=== PATIENT | female | born 1975 | race Caucasian/White ===

== ENCOUNTER 2019-11-01 10:29 | Outpatient (CLI) | payer BC, SELFPAY ==
--- NOTE | ~2019-11-01 | MM_ITS ---
EXAMINATION: MM screening [facility] BI w juan manuel HISTORY: Screening mammogram TECHNIQUE: Craniocaudal and mediolateral oblique 3-D tomosynthesis images were obtained and synthetic 2-D images were generated. CAD analysis was submitted and interpreted. COMPARISON: None, baseline BREAST PARENCHYMAL COMPOSITION: The breasts are almost entirely fatty. FINDINGS: There is no evidence of suspicious mass, calcification, or architectural distortion to sugg est malignancy in either breast. IMPRESSION: 1. No mammographic evidence of malignancy. 2. Recommend routine screening mammography in one year. BI-RADS Category 1: Negative Reviewed, dictated and finalized at location A.
== END 2019-11-01 10:30 | disposition home or self-care (01) ==
LOC: ANHIMG 10:31
PROVIDERS: Visit Provider Obstetrics & Gynecology
DX: Z12.31 Encounter for screening mammogram for malignant neoplasm of breast (principal)
CPT/HCPCS: 77063; 77067

== ENCOUNTER 2021-01-21 11:55 | Outpatient (CLI) | payer BC, SELFPAY ==
--- NOTE | ~2021-01-21 | MM_ITS ---
EXAMINATION: MM screening sri BI w juan manuel HISTORY: Screening TECHNIQUE: Craniocaudal and mediolateral oblique 3-D tomosynthesis images were obtained and synthetic 2-D images were generated. CAD analysis was submitted and interpreted. COMPARISON: 11/01/2019 BREAST PARENCHYMAL COMPOSITION: There are scattered areas of fibroglandular density. FINDINGS: There is no evidence of suspicious mass, calcification, or architectural distortion to sugg est malignancy in either breast. There has been no suspicious interval change. IMPRESSION: 1. No mammographic evidence of malignancy. 2. Recommend routine screening mammography in one year. BI-RADS Category 1: Negative Reviewed, dictated and finalized at location A.
== END 2021-01-21 11:56 | disposition home or self-care (01) ==
LOC: ANHIMG 11:56
PROVIDERS: Visit Provider Obstetrics & Gynecology
DX: Z12.31 Encounter for screening mammogram for malignant neoplasm of breast (principal)
CPT/HCPCS: 77063; 77067

== ENCOUNTER 2022-03-03 14:47 | Outpatient (CLI) | payer BC, SELFPAY ==
--- NOTE | ~2022-03-03 | MM_ITS ---
EXAMINATION: MM screening sri BI w juan manuel HISTORY: Screening mammogram TECHNIQUE: Craniocaudal and mediolateral oblique 3-D tomosynthesis images were obtained and synthetic 2-D images were generated. CAD analysis was submitted and interpreted. COMPARISON: 01/21/2021, 11/01/2019 BREAST PARENCHYMAL COMPOSITION: The breasts are almost entirely fatty. FINDINGS: There is no suspicious mass, calcification, or architectural distortion to suggest malignan cy in either breast. There has been no suspicious interval change. IMPRESSION: 1. No mammographic evidence of malignancy. 2. Recommend routine screening mammography in one year. BI-RADS Category 1: Negative Reviewed, dictated and finalized at location A.
== END 2022-03-03 14:48 | disposition home or self-care (01) ==
LOC: ANHIMG 14:50
PROVIDERS: PCP Obstetrics & Gynecology; Visit Provider Obstetrics & Gynecology
DX: Z12.31 Encounter for screening mammogram for malignant neoplasm of breast (principal)
CPT/HCPCS: 77063; 77067

== ENCOUNTER 2022-06-25 01:45 | Day surgery (SDC) | payer BC, SELFPAY ==
[2022-06-17 15:57] VITALS: BMI 38.7
[2022-06-25 10:30] VITALS: BP 146/73; PULSE 100; RESP 20; TEMP 36.1; O2SAT 100; BMI 40.1
[2022-06-25] MEDS: LACTATED RINGERS 1,000 ML 150 ML IV CONT (10:38)
--- NOTE | 2022-06-25 10:53 | WPDANESEPPF ---
Anes - Initial Pre Proc Eval Procedure: Operation Date: 06/25/22 11:30 Proposed Procedures p Screening Colonoscopy - Florentin Allen MD Date/Time: 06/25/22 10:53 Surgeon: Florentin Allen MD Pre Op Diagnosis: neoplasm screening Patient Data Age: 47 Gender: F Height: 1.78 m Weight: 127 kg Last Vital Signs Temp 96.9 F L 06/25/22 10:30 Pulse 100 06/25/22 10:30 Resp 20 06/25/22 10:30 BP 146/73 H 06/25/22 10:30 Pulse Ox 100 06/25/22 10:30 O2 Del Method Room Air 06/25/22 10:30 Allergies Allergy/AdvReac Type Severity Reaction Status Date / Time No Known Allergies Allergy Unknown Verified 06/25/22 10:29 Home Medications Medication Instructions Recorded Confirmed Type clobetasol 0.05 % topical ointment 1 applic topical DAILY PRN 01/20/22 06/17/22 History PSORIASIS drospirenone (contraceptive) 4 mg 1 tablet PO DAILY #84 tabs 05/06/22 06/17/22 Rx (28) tablet (Slynd) apremilast 30 mg tablet (Otezla) 30 mg PO BID 06/17/22 06/17/22 History Patient hx anesthesia problems: none Family hx anesthesia problems: none Results Review: All pre-operative results and documents have been reviewed as part of the pre-operative evaluation. PMFSH Past Medical History Medical History Anemia Chlamydia Psoriasis Skin cancer Surgical History Surgical History Status post surgical removal of malignant neoplasm of skin [place] teeth removed Family History Family History Grandparent Hypertension Family history of malignant neoplasm of breast Other Family history of Parkinson's disease Social History Social History Smoking status: Never smoker Second hand tobacco smoke exposure: No Alcohol intake: current Substance use: never Substance use type: does not use Living arrangements: with family Spiritual care concerns: No Anes - Eval Final PreProcedure Day of Procedure 06/25/22 10:53 Patient weight: morbidly obese Heart: regular rate and rhythm Lungs: clear to auscultation Airway: Mallampati scale class II Neurological: alert and oriented Last oral intake: >/= 8 hours ASA classification: III Emergent: no Anesthetic plan: proceed Anesthesia type and monitoring: general GIVS and standard monitoring Results Review: All pre-operative results and documents have been reviewed as part of the pre-operative evaluation. Informed Consent: The patient's anesthetic plan and its attendant risks and benefits were discussed with the patient/family/POA. Questions were solicited and answers provided to the satisfaction of the patient/family/POA.
--- NOTE | 2022-06-25 10:55 | PM.HPGS ---
History of Present Illness History of Present Illness Consent: Risks, benefits, and alternatives have been discussed and questions answered. Patient agrees to proceed with procedure. Chief complaint: neoplasm screening Narrative: Sheryl Benjamin is a 47 year old female here for first screening colonoscopy Review of Systems Constitutional: Constitutional: Denies headache(s) and Denies weakness Eyes: Eyes: Denies blurry vision ENT: Reports Normal hearing present, Denies headache(s) and Denies neck pain Cardiovascular: Cardiovascular: Denies chest pain and Denies dyspnea Respiratory: Respiratory: Denies dyspnea Gastrointestinal: Gastrointestinal: Reports no additional gastrointestinal complaints Genitourinary: Genitourinary: Denies dysuria Musculoskeletal: Musculoskeletal: Denies neck pain Integumentary/Breasts: Skin/Breast: Denies dry skin Neurologic: Reports Normal hearing present, Denies headache(s) and Denies weakness Psychiatric: Psychiatric: Denies anxiety Endocrine: Endocrine: Denies change in body appearance Hematologic/Lymphatic: Hematologic/Lymphatic: Denies easy bleeding Allergic/Immunologic: Allergic/Immunologic: Denies urticaria PMFSH Past Medical History Medical History (Updated 06/25/22 @ 10:55 by Florentin Allen MD) Anemia Chlamydia Colon cancer screening Psoriasis Skin cancer Surgical History Surgical History Status post surgical removal of malignant neoplasm of skin [place] teeth removed Family History Family History Grandparent Hypertension Family history of malignant neoplasm of breast Other Family history of Parkinson's disease Social History Social History Smoking status: Never smoker Second hand tobacco smoke exposure: No Alcohol intake: current Substance use: never Substance use type: does not use Living arrangements: with family Spiritual care concerns: No Meds Home Medications and Allergies Home Medications Medication Instructions Recorded Confirmed Type clobetasol 0.05 % topical ointment 1 applic topical DAILY PRN 01/20/22 06/17/22 History PSORIASIS drospirenone (contraceptive) 4 mg 1 tablet PO DAILY #84 tabs 05/06/22 06/17/22 Rx (28) tablet (Slynd) apremilast 30 mg tablet (Otezla) 30 mg PO BID 06/17/22 06/17/22 History Allergies Allergy/AdvReac Type Severity Reaction Status Date / Time No Known Allergies Allergy Unknown Verified 06/25/22 10:29 Vital Signs Vital Signs - 24 hr 06/25/22 10:30 Temperature 96.9 F L Pulse Rate 100 Respiratory Rate 20 Blood Pressure 146/73 H Pulse Oximetry 100 Oxygen Delivery Room Air Exam Const: General: comfortable and no acute distress HENMT: Face/Nose/Sinus: Normal nares present Eyes: General: appearance normal, both eyes and all related structures Neck: Neck: no JVD Resp: Auscultation: clear to auscultation bilaterally Cardio: Rate: regular rate Rhythm: regular rhythm GI: Inspection: non-distended GI Palp: Yes Soft to palpation Skin: General skin exam: normal color Neuro: General: gait normal Speech: normal speech Extrem: General: normal to inspection Psych: Mental Status: mental status grossly normal Assessment and Plan Assessment and plan (1) Colon cancer screening: Code(s): Z12.11 - Encounter for screening for malignant neoplasm of colon Status: Acute Assessment and Plan: colonoscopy
[2022-06-25 11:24] VITALS: BP 118/82; PULSE 61; RESP 18; O2SAT 99
[2022-06-25 11:34] VITALS: BP 111/79; PULSE 78; RESP 16; O2SAT 100
[2022-06-25 11:44] VITALS: BP 134/73; PULSE 75; RESP 22; O2SAT 100
== END 2022-06-25 11:56 | disposition home or self-care (01) ==
PROVIDERS: Visit Provider Internal Medicine Gastroenterology
PROC: 0DJD8ZZ Inspection of Lower Intestinal Tract, Via Natural or Artificial Opening Endoscopic (ICD-10-PCS; CPT 45378; principal; 2022-06-25 11:30)
DX: Z12.11 Encounter for screening for malignant neoplasm of colon (principal); D12.5 Benign neoplasm of sigmoid colon; D12.3 Benign neoplasm of transverse colon; K57.30 Diverticulosis of large intestine without perforation or abscess without bleeding; K64.8 Other hemorrhoids; Z85.828 Personal history of other malignant neoplasm of skin
CPT/HCPCS: 45385; 88305; J2704; J7120

== ENCOUNTER 2023-05-18 13:56 | Outpatient (CLI) | payer BC, SELFPAY ==
--- NOTE | ~2023-05-18 | MM_ITS ---
EXAMINATION: MM screening [facility] BI w juan manuel HISTORY: Screening mammogram TECHNIQUE: Craniocaudal and mediolateral oblique 3-D tomosynthesis images were obtained and synthetic 2-D images were generated. CAD analysis was submitted and interpreted. COMPARISON: 03/03/2022, 01/21/2021, 11/01/2019 BREAST PARENCHYMAL COMPOSITION: The breasts are almost entirely fatty. FINDINGS: There is no evidence of suspicious mass, calcification, or architectural distortion to sugg est malignancy in either breast. There has been no suspicious interval change. IMPRESSION: 1. No mammographic evidence of malignancy. 2. Recommend routine screening mammography in one year. BI-RADS Category 1: Negative Reviewed, dictated and finalized at location A.
== END 2023-05-18 13:57 | disposition home or self-care (01) ==
LOC: ANHIMG 13:59
PROVIDERS: PCP Nurse Practitioner Family; Visit Provider Obstetrics & Gynecology
DX: Z12.31 Encounter for screening mammogram for malignant neoplasm of breast (principal)
CPT/HCPCS: 77063; 77067

== ENCOUNTER 2024-06-14 07:51 | Outpatient (CLI) | payer BC, SELFPAY ==
--- NOTE | ~2024-06-14 | MM_ITS ---
EXAMINATION: MM screening sri BI w juan manuel HISTORY: Screening TECHNIQUE: Craniocaudal and mediolateral oblique 3-D tomosynthesis images were obtained and synthetic 2-D images were generated. CAD analysis was submitted and interpreted. COMPARISON: Comparison to multiple prior studies sequentially, with oldest reviewed study dated 10/31. BREAST PARENCHYMAL COMPOSITION: Not Dense: The breasts are almost entirely fatty. FINDINGS: There is no evidence of suspicious mass, calcification, or architectural distortion to sugg est malignancy in either breast. There has been no suspicious interval change. IMPRESSION: 1. No mammographic evidence of malignancy. 2. Recommend routine screening mammography in one year. BI-RADS Category 1: Negative Reviewed, dictated and finalized at location B.
== END 2024-06-14 07:52 | disposition home or self-care (01) ==
LOC: ANHIMG 07:52
PROVIDERS: PCP Nurse Practitioner Family; Visit Provider Obstetrics & Gynecology
DX: Z12.31 Encounter for screening mammogram for malignant neoplasm of breast (principal)
CPT/HCPCS: 77063; 77067

== ENCOUNTER 2025-07-09 15:00 | Outpatient (CLI) | payer BC, SELFPAY ==
--- NOTE | ~2025-07-09 | MM_ITS ---
EXAMINATION: MM screening sri BI w juan manuel HISTORY: Screening TECHNIQUE: Craniocaudal and mediolateral oblique 3-D tomosynthesis images were obtained and synthetic 2-D images were generated. CAD analysis was submitted and interpreted. COMPARISON: Comparison to multiple prior studies sequentially, with oldest reviewed study dated 11/01/2019. BREAST PARENCHYMAL COMPOSITION: Not Dense: The breasts are almost entirely fatty. FINDINGS: There is no evidence of suspicious mass, calcification, or architectural distortion to suggest malignancy in either breast. There has been no suspicious interval change. IMPRESSION: 1. No mammographic evidence of malignancy. 2. Recommend routine screening mammography in one year. BI-RADS Category 1: Negative Reviewed, dictated and finalized at location O. EGE ADMISSIONS COUNSELOR
--- OUTSIDE RECORDS SUMMARY | 2025-07-10 02:11 | XMS_ITS | Encounter Summary ---
Author Organization [facility] Address [facility] [place] [address] Care Team Providers Care Marketing Support Manager Name Role Phone Lucia Lu Primary Care Provider [phone] Encounter Details Date Type Department Care Team (Late st Contact Info) Description 03/01/2024 MyCEDUSt Message Enc [facility] Family & Internal Medicine [facility] [address] [place] [phone] Lucia Lu FNP [address], [place] [id number] Appt on Social History Tobacco Use Types Packs/Day Years Used Date Smoking Tobacco: Former Cigarettes 0.3 2 0 04/22/1998 - 04/22/2000 Passive Smoke Exposure: Past Smokeless Tobacco: Never Alcohol Use Standard Drinks/Week Comments Yes 4 (1 standard drink = 0.6 oz pur e alcohol) I drink maybe 3 times a month PHQ-2 Answer Date Recorded Patient Health Questionnaire-2 Score 2 10/14/2022 Comments No Sex and Gender Information Value Date Recorded Sex Assigned at Female 10/02/2024 4:19 PM ELEVATOR SERVICE MECHANIC Legal Sex Female 7:18 PM CDT Gender Identity Female 10/14/2022 3:07 PM ELEVATOR SERVICE MECHANIC Sexual Orientation Not on file documented as of this encounter Plan of Treatment Not on file documented as of this encounter Visit Diagnoses Not on filedocumented in this encounter Additional Health Concerns Assessment Noted Time PHQ-9 Depression Total Score: 11 023 3:08 PM ELEVATOR SERVICE MECHANIC documented as of this encounter Care Teams Marketing Support Manager Relationship Specialty Start Date End Date Lucia Lu FNP [address] [place], [place] [phone] PCP - General Nurse Practitioner Family 10/14/22 documented as of this encounter
--- OUTSIDE RECORDS SUMMARY | 2025-07-10 02:11 | XMS_ITS | Clinical Summary ---
Author Organization [facility] Address [address] [place] [address] Care Team Providers Care Registered Dietetic Technician Name Role Phone Unavailable Primary Care Provider Unavailabl e Allergies No known active allergies Medications escitalopram (LEXAPRO) 20 mg tablet Take 20 mg by mouth daily. Dr. Palacios - her CAREER LAW CLERK 4 Active LEVORA-28 0.15-30 mg-mcg tablet Take 1 Tab by mouth daily. From CAREER LAW CLERK 4 Active fluocinolone-sh ower cap (DERMA-SMOOTHE- FS) 0.01 % Oil From derm for psoriasis of scalp. 3x/week 4 Active TACLONEX 0.005-0.064 % Suspension daily. For psoriasis, from Derm 4 Active naproxen (NAPROSYN) 500 mg tabletIndicatio ns:Right hamstring muscle strain Take 1 Tab by mouth 2 times daily with meals. 60 Tab 1 4 Active Active Problems Problem Noted Date Diagnosed Date Right hamstring muscle strain 10/29/2013 BMI 40.0-44.9, adult 10/29/2013 Obesity, Class III, BMI 40-49.9 (morbid obesity) 10/29/2013 Family History Medical History Relation Name Comments Healthy Father Breast Cancer Maternal Grandmother dx in her 60s Healthy Mother Colon Cancer Neg Hx Relation Name Status Comments Father Maternal Grandmother Mother Social History Tobacco Use Types Packs/Day Years Used Date Smoking Tobacco: Former Cigarettes Q uit: 10/30/2007 Smokeless Tobacco: Never Tobacco Cessation:Counseling Given: No Alcohol Use Standard Drinks/Week Comments Yes 0 (1 standard drink = 0.6 oz pur e alcohol) once a week Comments No Sex and Gender Information Value Date Recorded Sex Assigned at Not on file Legal Sex Female 8:22 AM CDT Gender Identity Not on file Sexual Orientation Not on file Occupation Industry Job Start Date Job End Date Not on file Not on file Not on file Not on file Last Filed Vital Signs Vital Sign Reading Time Taken Comments Blood Pressure 110/70 10/29/2013 1:54 PM CDT Pulse 82 10/29/2013 1:54 PM CDT Temperature - - Respiratory Rate - - Oxygen Saturation 98% 10/29/2013 1:54 PM CDT Inhaled Oxygen Concentration - - Weight 125.2 kg (276 lb) 10/29/2013 1:54 PM CDT Height 172.7 cm (5' 8) 10/29/2013 1:54 PM CDT Body Mass Index 41.97 10/29/2013 1:54 PM CDT Plan of Treatment Health Maintenance Due Date Last Done Comments Pre-Diabetes and Diabetes Screening 1977 DTAP/TDAP/TD VACCINES (1 - Tdap) 1996 HEPATITIS B VACCINES (1 of 3 - 19+ 3-dose series) 04/22 HPV/Cotest (21-29) 1998 CERVICAL CANCER SCREENING 2007 HPV/Cotest (30-65) 2007 PAP SMEAR 2007 BREAST CANCER SCREENING 2017 COLORECTAL SCREENING 2022 Colorectal Cancer Screening 2022 FIT-DNA Q 3 years 2022 FIT/FOBT Q 1 year 2022 Flex Sig/CT Colonography Q 5 years 2022 INFLUENZA VACCINE (#1) 2025 Insurance [facility] OPTIONS PPO [id number] RX [facility]
--- OUTSIDE RECORDS SUMMARY | 2025-07-10 02:12 | XMS_ITS | Encounter Summary ---
Author Organization [facility] Address [address] [place] [address] Care Team Providers Care Geriatric Nurse Practitioner Name Role Phone Unavailable Primary Care Provider Unavailabl e Encounter Details Date Type Department Care Team (Late st Contact Info) Description 01/09/2021 Lab Requisition [facility] [address] [place] [phone] Andrei Nixon MD [address] [place] [address] Social History Tobacco Use Types Packs/Day Years Used Date Smoking Tobacco: Never Assessed Comments Unknown Sex and Gender Information Value Date Recorded Sex Assigned at Not on file Legal Sex Female 3:32 PM CDT Gender Identity Not on file Sexual Orientation Not on file documented as of this encounter Plan of Treatment Not on file documented as of this encounter Procedures Procedure Name Priority Date/Time Associated Diagnosis Comments DERMATOPATHOLOGY Routine 01/07/2021 3:33 AM CDT documented in this encounter Results * DERMATOPATHOLOGY (01/07/2021 3:33 AM CDT) Case Report Dermatopathology Report Case: [id number] Authorizing Provider: Andrei Nixon MD Collected: 01/07/2021 03:33 AM Ordering Location: [facility] Received: 01/09/2021 05:40 AM Pathologist: Kelly Townsend MD Specimen: Skin, mid back 11:14 AM CDT DERMATOPATHOLOGY LABORATORY Final Diagnosis Specimen A. 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 Path# [id number]. 11:14 AM CDT DERMATOPATHOLOGY LABORATORY Gross Description Specimen A: Received is one formalin filled container labeled with the patient's name and designated mid back. The specimen consists of a shave biopsy measuring [id number]. Jar 0. 11:14 AM CDT DERMATOPATHOLOGY LABORATORY Microscopic Description Specimen A. SKIN, mid back: This is a junctional nevus. There is melanin pigment in the stratum corneum. There is architectural disorder characterized by a lentiginous proliferation of melanocytes between irregular nests of cells along the dermal-epidermal junction. There is underlying fibroplasia of the papillary dermis and abundant melanin within melanophages around the superficial vascular plexus. (Junctional Pascual's Nevus or Junctional Dysplastic Nevus) 11:14 AM T DERMATOPATHOLOGY LABORATORY Disclaimer An external and internal positive and negative controls are appropriate for the histochemical, immunohistochemical and immunofluorescence stain(s) in this case (if any), except where stated explicitly. The performance characteristics of the stain(s) cited in this report were developed and its performance characteristic determined by the Dermatopathology Laboratory at [facility], directed by Dr. Kim Fregoso. These tests need not be, and therefore are not, approved by the [place] Food and Drug Administration. The tests are used for clinical purposes. Billing Codes Specimen Charges Stain Charges 16268 1 11:14 AM CDT DERMATOPATHOLOGY LABORATORY Embedded Images 11:14 AM CDT DERMATOPATHOLOGY LABORATORY Pathology/Cytolo gy TISSUE SPECIMEN FROM SKIN / Unknown 01/07/2021 3:33 AM CDT 01/09/2021 5:40 AM CDT us Andrei Nixon MD LAB - PATHOLOGY/CYTOLOGY ORDER RACHEL Final Result DERMATOPATHOLOGY LABORATORY [facility] - Department of Dermatology [address], [address] [phone] documented in this encounter Visit Diagnoses Not on filedocumented in this encounter
--- OUTSIDE RECORDS SUMMARY | 2025-07-10 02:12 | XMS_ITS | Clinical Summary ---
Author Organization [facility] Address [address] [place] [address] Care Team Providers Care Saddle Maker Name Role Phone Unavailable Primary Care Provider Unavailabl e Source Comments [facility],non-owned Affiliates and Associated Physician Practices is amultiple site organization consisting of ambulatory clinics and hospital sitesin [place], [place], [place] and [place]. This disclosure is being madepursuant to the Care Everywhere program and may not contain all information available regarding this patient. Last updated 18.[facility] Social History Tobacco Use Types Packs/Day Years Used Date Smoking Tobacco: Never Assessed Comments Unknown Sex and Gender Information Value Date Recorded Sex Assigned at Not on file Legal Sex Female 3:32 PM CDT Gender Identity Not on file Sexual Orientation Not on file Plan of Treatment Health Maintenance Due Date Last Done Comments COLOGUARD (AGES 45-75) - COL ON CA SCREENING 1977 COLON MONITORING 1977 COLONOSCOPY - COLON CA SCREENING 1977 CT COLONOGRAPHY - COLON CA SCREENING 1977 Colorectal Cancer Screening 1977 FIT - COLON CA SCREENING 1977 FLEX SIG - COLON CA SCREENING 1977 LIPID TESTING 1977 MAMMOGRAM 1977 HIV SCREENING 1992 HEPATITIS C SCREENING 04/27/1995 DTAP/TDAP/TD VACCINES (1 - Tdap) 1996 HEPATITIS B VACCINE (1 of 3 - 19+ 3-dose series) 1996 PAP SMEAR 1998 Cervical Cancer Screening 2007 PAP with HPV 2007 DEPRESSION SCREENING 08/22/2024 COVID-19 VACCINE (1 - 2024-2 6 season) 2025 INFLUENZA VACCINE (#1) 2025 ZOSTER VACCINE (1 of 2) 2027 HIB VACCINE Aged Out No longer eligi ble based on patient's age to complete this topic HPV VACCINE Aged Out No longer eligi ble based on patient's age to complete this topic MENINGOCOCCAL (Group B) VACC INE SHARED DECISION-MAKING Aged Out No longer eligibl e based on patient's age to complete this topic MENINGOCOCCAL GROUPS A/C/Y/W VACCINE Aged Out No longer eligible b ased on patient's age to complete this topic PNEUMOCOCCAL VACCINE Aged Out No long er eligible based on patient's age to complete this topic Insurance [facility] Address: [facility] [id number] [place] [address]
--- OUTSIDE RECORDS SUMMARY | 2025-07-10 02:12 | XMS_ITS | Encounter Summary ---
Author Organization [facility] Address [facility] [place] [address] Care Team Providers Care Lung Puller Name Role Phone Lucia Lu Primary Care Provider [phone] Encounter Details Date Type Department Care Team (Late st Contact Info) Description 10/15/2022 VAYAVYA LABSt Message Enc [facility] Medical Group Family & Internal Medicine [facility] [address] [place] [address] Lucia Lu FNP [address] [place] [address] Ozempic Social History Tobacco Use Types Packs/Day Years Used Date Smoking Tobacco: Former Cigarettes 0.3 2 0 04/22/1998 - 04/22/2000 Passive Smoke Exposure: Past Smokeless Tobacco: Never Alcohol Use Standard Drinks/Week Comments Yes 4 (1 standard drink = 0.6 oz pur e alcohol) I drink maybe 3 times a month PHQ-2 Answer Date Recorded Patient Health Questionnaire-2 Score 2 10/14/2022 Comments Unknown Sex and Gender Information Value Date Recorded Sex Assigned at Female 10/02/2024 4:19 PM MEDICAL CODER Legal Sex Female 7:18 PM CDT Gender Identity Female 10/14/2022 3:07 PM MEDICAL CODER Sexual Orientation Not on file COVID-19 Exposure Response Date Recorded In the last 10 days, have yo u been in contact with someone who was confirmed or suspected to have Coronavirus/COVID-19? No / Unsure 10/14/2022 2:02 PM MEDICAL CODER documented as of this encounter Plan of Treatment Not on file documented as of this encounter Visit Diagnoses Not on filedocumented in this encounter Additional Health Concerns Assessment Noted Time PHQ-9 Depression Total Score: 11 023 3:08 PM MEDICAL CODER documented as of this encounter Care Teams Lung Puller Relationship Specialty Start Date End Date Lucia Lu FNP [address] [place] [id number] PCP - General Nurse Practitioner Family 10/14/22 documented as of this encounter
--- OUTSIDE RECORDS SUMMARY | 2025-07-10 02:12 | XMS_ITS | Encounter Summary ---
Author Organization [facility] Address [facility] [place] [address] Care Team Providers Care Day Care Provider Name Role Phone Lucia Lu Primary Care Provider [phone] Encounter Details Date Type Department Care Team (Late st Contact Info) Description 11/09/2023 Distill Message Enc [facility] Family & Internal Medicine [facility] [address] [place] [address] Lucia Lu FNP [address] [place], [place] [id number] Cough med Social History Tobacco Use Types Packs/Day Years [...] Sex Assigned at Female 10/02/2024 4:19 PM SHIFTMAN Legal Sex Female 7:18 PM CDT Gender Identity Female 10/14/2022 3:07 PM SHIFTMAN Sexual Orientation Not on file documented as of this encounter Plan of Treatment Not on file documented as of this encounter Visit Diagnoses Not on filedocumented in this encounter Additional Health Concerns Assessment Noted Time PHQ-9 Depression Total Score: 11 023 3:08 PM SHIFTMAN documented as of this encounter Care Teams Day Care Provider Relationship Specialty Start Date End Date Lucia Lu FNP [address] [place] [id number] PCP - General Nurse Practitioner Family 10/14/22 documented as of this encounter
--- OUTSIDE RECORDS SUMMARY | 2025-07-10 02:12 | XMS_ITS | Encounter Summary ---
Author Organization [facility] Address [address] [place] [address] Care Team Providers Care Mig Tig Welder Name Role Phone Lucia Lu Primary Care Provider Encounter Details Date Type Department Care Team (Late st Contact Info) Description 03/07/2025 Beauty Booked Message [facility] Patient Accounts [address] [place] [address] [facility] Provider Auto Payment Declined Social History Tobacco Use Types Packs/Day Years Used Date Smoking Tobacco: Former Cigarettes 0.3 2 0 04/22/1998 - 04/22/2000 Passive Smoke Exposure: Past Smokeless Tobacco: Never Alcohol Use Standard Drinks/Week Comments Yes 4 (1 standard drink = 0.6 oz pur e alcohol) I drink maybe 3 times a month PHQ-2 Answer Date Recorded Patient Health Questionnaire-2 Score 0 10/02/2024 Comments No Sex and Gender Information Value Date Recorded Sex Assigned at Female 10/02/2024 4:19 PM ACUTE CARE SURGEON Legal Sex Female 7:18 PM CDT Gender Identity Female 10/14/2022 3:07 PM ACUTE CARE SURGEON Sexual Orientation Not on file documented as of this encounter Plan of Treatment Not on file documented as of this encounter Visit Diagnoses Not on filedocumented in this encounter Additional Health Concerns Assessment Noted Time PHQ-9 Depression Total Score: 0 10/02/19 25 4:07 PM ACUTE CARE SURGEON documented as of this encounter Care Teams Mig Tig Welder Relationship Specialty Start Date End Date Lucia Lu FNP [address] [place] [id number] PCP - General Nurse Practitioner Family 10/14/22 documented as of this encounter
--- OUTSIDE RECORDS SUMMARY | 2025-07-10 02:12 | XMS_ITS | Clinical Summary ---
Author Organization [facility] Address [address] [place] [address] Care Team Providers Care Trestle Mechanic Name Role Phone Lucia Lu CATRACHO Primary Care Provider [phone] Allergies No known active allergies Medications SLYND 4 MG Tab Take 1 tablet by mouth daily. 3 Active clobetasol (TEMOVATE) 0.05 % ointment Apply topically 2 (two) times daily as needed. Active betamethasone dipropionate 0.05 % lotion 3 Active valACYclovir (VALTREX) 1 g tabletIndications :Recurrent cold sores Take 1 tablet (1,000 mg total) by mouth 2 (two) times daily. 30 tablet 1 3 Active TREMFYA 100 MG/ML Solution Pen-injector 3 Active traZODone (DESYREL) 100 MG tabletIndications :Primary insomnia TAKE 1 & 1/2 (ONE & ONE-HALF) TABLETS BY MOUTH AT BEDTIME NEEDED 45 tablet 11 4 Active naltrexone (DEPADE) 50 MG tabletIndications :Class 3 severe obesity due to excess calories with serious comorbidity and body mass index (BMI) of 45.0 to 49.9 in adult (CMS/HCC) Take 1 tablet (50 mg total) by mouth daily. 90 tablet 3 5 Active buPROPion XL (WELLBUTRIN XL) 300 MG 24 hr tabletIndications :Anxiety and depression Take 1 tablet (300 mg total) by mouth every morning. 90 tablet 3 08/08/202 5 Active MULTIPLE VITAMIN OR Take 1 chewable tablet by mouth daily. Active Vitamin D3 125 mcg Tab Take 1 tablet (125 mcg total) by mouth daily. Active Cyanocobalamin (B-12) 1000 MCG Chew Tab Chew 1,000 mcg by mouth daily. 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 5 ML Prefilled Syringe) 07/10/2024 Influenza (Generic) 08/18/2016 Influenza Adult (Generic) 05/20/2023,,05/11/2018,2016 PFIZER COVID-19 (12+) MRNA, LNP-S, PF, ISABEL-SUCROSE, 30 MCG/0.3 ML (COMIRNATY) 07/10/2024 PFIZER COVID-19 BIVALENT (12 +) mRNA, LNP-S, PF, 30 MCG/0.3 ML DOSE 05/21/2022 Tdap (Adacel) 10/14/2022 Family History Medical History Relation Comments Hearing loss Father Cancer Maternal Grandmother Breast canc er in the 80 s Obesity Mother Cancer Paternal Grandfather Skin cancer Hypertension Paternal Grandmother Relation Status Comments Father Alive Maternal Grandmother Mother Alive Paternal Grandfather Paternal Grandmother Social History Tobacco Use Types Packs/Day Years Used Date Smoking Tobacco: Former Cigarettes 0.3 2.3 0 04/22/1998 - 04/22/2000 Passive Smoke Exposure: Past Smokeless Tobacco: Never Tobacco Cessation:Counseling Given: No Alcohol Use Standard Drinks/Week Comments Yes 4 (1 standard drink = 0.6 oz pur e alcohol) I drink maybe 3 times a month PHQ-2 Answer Date Recorded Patient Health Questionnaire-2 Score 0 10/02/2024 Comments No Sex and Gender Information Value Date Recorded Sex Assigned at Female 10/02/2024 4:19 PM SOLUTIONS DEVELOPMENT ANALYST Legal Sex Female 7:18 PM CDT Gender Identity Female 10/14/2022 3:07 PM SOLUTIONS DEVELOPMENT ANALYST Sexual Orientation Not on file Last Filed Vital Signs Vital Sign Reading Time Taken Comments Blood Pressure 134/76 03/29/2025 1:57 PM CDT Pulse 95 03/29/2025 1:57 PM CDT Temperature 36.8 C (98.2 F) 03/29/2025 1:57 PM CDT Respiratory Rate 16 03/29/2025 1:57 PM CDT Oxygen Saturation 98% 03/29/2025 1:57 PM CDT Inhaled Oxygen Concentration - - Weight 134.7 kg (297 lb) 03/29/2025 1:57 PM CDT Height 172.7 cm (5' 8) 03/29/2025 1:57 PM CDT Body Mass Index 45.16 03/29/2025 1:57 PM CDT Plan of Treatment Health Maintenance Due Date Last Done Comments Cervical Cancer Screening Pap Smear (Age 30 to 64) Every 3 Years 1977 Annual Physical 1980 Hepatitis B Vaccines (1 of 3 - 19+ 3-dose series) 1996 Cervical Cancer Screening Pap with HPV Testing (Age 30 to 64) Every 5 Years 2007 COVID-19 Vaccine ( season) 2025 07/10/2024, 05/20/2023, 05/21/2022, Additional history exists Influenza Adult (#1) 2025 07/10/2024, 05/20/2023, 05/21/2022, Additional history exists Cervical Cancer Screening with HPV 03/29/2026 Postponed from 2007 (Going to Outside Clinic) Mammogram Screening 06/14/2026 06/14/2024, 05/18/2023, 03/03/2022, Additional history exists Colorectal Cancer Screening Colonoscopy (10 Years) 06/25/2027 06/25/2022 DTaP, Tdap and Td Vaccines (2 - Td or Tdap) 10/14/2032 10/14/2022 Hepatitis C Completed 03/20/2024 PHQ-2 (Physician [place]) Completed 10/02/2024 Hepatitis A Vaccines Aged Out No long er eligible based on patient's age to complete this topic Meningococcal B Vaccine Aged Out No l onger eligible based on patient's age to complete this topic Meningococcal Vaccine Aged Out No alejandro ronny eligible based on patient's age to complete this topic Pneumococcal Vaccine: Pediatrics (0 to 5 Years) and At-Risk Patients (6 to 49 Years) Aged Out No longer eligible based on patient's age to complete this topic RSV Immunizations Under 20 Months Aged Out No longer eligible based on patient's age to complete this topic Procedures Procedure Name Priority Date/Time Associated Diagnosis Comments MAMMOGRAM GENERIC (SCAN ORDER) 06/14/2024 HEPATITIS C ANTIBODY Routine 03/20/2024 2:36 PM CDT Encounter for hepatitis C screening test for low risk patient COLONOSCOPY GENERIC (SCAN ORDER) 06/25/2022 from Last 3 Months or Most Recently Relevant to Health Maintenance Results * MAMMOGRAM GENERIC (SCAN ORDER) (06/14/2024) Anatomical Region Laterality Modality Other 06/14/2024 [facility] Scanned SCANNING Final Resu lt * HEPATITIS C ANTIBODY ([facility] ONLY) (03/20/2024 2:36 PM CDT) HEPATITIS C AB NON-REACTI VE NON-REACT ANDRES 03/20/2024 9:57 PM CDT [facility] Comment: ANTIBODIES TO HCV NOT DETECTED. DOES NOT EXCLUDE THE POSSIBILITY OF EXPOSURE TO HCV. 03/20/2024 2:36 PM CDT Lucia [facility] Final Result [facility] [address] [place] [address], [id number] * COLONOSCOPY GENERIC (06/25/2022) 06/25/2022 [facility] Scanned SCANNING Final Resu lt from Last 3 Months or Most Recently Relevant to Health Maintenance Insurance [facility] Care Teams Trestle Mechanic Relationship Specialty Start Date End Date Lucia Lu FNP [address] [place] [phone] PCP - General Nurse Practitioner Family 10/14/22
== END 2025-07-09 15:01 | disposition home or self-care (01) ==
LOC: ANHFOHIMG 15:01
PROVIDERS: PCP Nurse Practitioner Family; Visit Provider Obstetrics & Gynecology
DX: Z12.31 Encounter for screening mammogram for malignant neoplasm of breast (principal)
CPT/HCPCS: 77063; 77067